=== PATIENT | female | born 1980 | race Caucasian/White ===

== ENCOUNTER 2020-07-25 11:31 | Emergency (ER) | payer OTHER, SELFPAY ==
--- NOTE | ~2020-07-25 | US_ITS ---
EXAMINATION: US pelvic complete DATE: 07/25/2020 12:52 INDICATION: Pelvic pain and vaginal bleeding TECHNIQUE: Multiple transabdominal and endovaginal sonographic images of the pelvis were obtained. COMPARISON: None. FINDINGS: The uterus measures 10.5 x 5.1 x 6.5 cm. There is an approximately 4.1 x 4.2 x 2.7 cm isoec hoic mass of the uterine fundus which has the appearance of an intramural fibroid The endometrial com plex measures 16 mm. The right ovary is not visualized however no right adnexal abnormality is seen. The left ovary measures 2.1 x 1.5 x 1.6 cm. There is normal vascular flow in the left ovary. There is no free fluid in the pelvis. IMPRESSION: 1. Likely uterine fibroid. No definite correlate identified for the patient's symptoms. Reviewed, dictated and finalized at location A. TESY CLERK IMPRESSION: 1. Likely uterine fibroid. No definite correlate identified for the patient's s ymptoms.
--- NOTE | 2020-07-25 11:38 | ED.GENADULT ---
HPI - General Adult General Chief complaint: Vaginal Bleeding Stated complaint: vag pain/bleeding Time Seen by Provider: 07/25/20 11:38 Source: patient Mode of arrival: ambulatory Limitations: no limitations History of Present Illness HPI narrative: Patient is a 40-year-old female with a history of IV drug abuse who presents for evaluation of lower abdominal pain and heavy vaginal bleeding. Pt reports 12 hours of pain that is sharp in nature. She denies fever, nausea or vomiting. Denies back pain. No dysuria, does report vaginal bleeding over past two days. Pt has a history of irregular periods. Patient states she has history of tubal ligation, ovarian cyst removal, denies other intra-abdominal surgeries.She denies vaginal discharge. No history of STI. She denies constipation or diarrhea. Patient denies bloating or distention. Related Data Allergies Allergy/AdvReac Type Severity Reaction Status Date / Time No Known Allergies Allergy Verified 07/25/20 11:46 Review of Systems Review of Systems: Narrative: CONSTITUTIONAL: Denies fever, chills, or sweats. ENT: Denies rhinorrhea, congestion, sore throat, or otalgia. CARDIOVASCULAR: Denies chest pain, palpitations, or edema. RESPIRATORY: Denies cough or dyspnea. GASTROINTESTINAL: Reports lower abdominal pain, denies nausea, vomiting or diarrhea GENITOURINARY: Denies dysuria or hematuria. Reports vaginal bleeding SKIN: Denies rash or itching. MUSCULOSKELETAL: Denies back pain, joint pain, or myalgia. NEUROLOGIC: Denies headache, numbness, or weakness. PSYCHIATRIC: Reports anxiety PMFSH Past Medical History Medical History No pertinent past medical history Surgical History Surgical History (Updated 07/25/20 @ 12:05 by Jud Krueger MD) History of removal of ovarian cyst History of tubal ligation Social History Social History (Updated 07/25/20 @ 12:05 by Jud Krueger MD) Alcohol intake: current Alcohol use details: Social Substance use: former Substance use type: heroin Gender identity (if verbalized by the patient): Female Exam Narrative: Exam Narrative: GENERAL: Awake, alert, conversant, tearful HEAD: Normocephalic, atraumatic. EYES: PERRLA and EOMI. ENT: Nares clear, no rhinorrhea or epistaxis. Mucous membranes moist. NECK: Supple. CHEST: No respiratory distress, breathing even and non labored HEART: Regular rate, sinus rhythm ABDOMEN:Non distended,lower abdominal tenderness, + suprapubic tenderness, + guarding : Labia majora and minora normal without lesions. Vagina with blood present. Approximately 15 cc of blood. No blood clot. No cervical motion tenderness. No adnexal tenderness or fullness bilaterally. No purulent discharge present. EXTREMITIES: Normal range of motion. No edema. SKIN: Warm, dry, no rash. NEURO:No focal deficits. Alert and oriented x3 Course Vital Signs Vital signs: Vital Signs Temperature 36.4 C 07/25/20 11:41 Pulse Rate 74 07/25/20 11:41 Respiratory Rate 14 07/25/20 11:41 Blood Pressure 143/90 H 07/25/20 11:41 Pulse Oximetry 100 07/25/20 11:41 Temperature 36.4 C 07/25/20 11:41 Pulse Rate 74 07/25/20 11:41 Respiratory Rate 14 07/25/20 11:41 Blood Pressure 143/90 H 07/25/20 11:41 Pulse Oximetry 100 07/25/20 11:41 Medical Decision Making MDM Narrative Medical decision making narrative: Patient presented for evaluation of heavy vaginal bleeding in the setting of pelvic pain. At the time of assessment, ABCs are intact and vital signs are stable. Physical exam is notable fo moderate vaginal bleeding, cervix is otherwise normal-appearing. No purulent discharge. No evidence of cervicitis. No adnexal tenderness or fullness. No UTI. Pelvic ultrasound notable for uterine fibroid. Patient is not . At this point, likely dysfunctional uterine bleeding and pain due to fibroid. Pt refused to have lab redraw for [facility]
[2020-07-25 11:41] VITALS: BP 143/90; PULSE 74; RESP 14; TEMP 36.4; O2SAT 100
[2020-07-25] MEDS: ONDANSETRON INJ 4 MG/2 ML VIAL IV PUSH (12:28)
[2020-07-25] MEDS: MORPHINE SULFATE (*CRX) 4 MG/ML INJ IV PUSH (12:28)
[2020-07-25 12:30] LABS: Basophils Absolute Auto 0.1 K/mm3 (0.0-0.1); Basophils Percent Auto 0.8 % (0.2-1.2); Eosinophils Absolute Auto 0.6 K/mm3 (0-0.3); Eosinophils Percent Auto 8.8 % (0-4.4); Hematocrit 38.9 % (37.0-47.0); Hemoglobin 13.3 g/dL (12.0-15.0); Immature Granulocyte Absolute 0.02 K/mm3 (0.00-0.031); Immature Granulocyte Percent A 0.3 % (0-0.5); Lymphocytes Absolute Auto 2.63 K/mm3 (0.9-3.2); Lymphocytes Percent Auto 41.5 % (18.3-44.2); Mean Corpuscular HGB Conc 34.2 g/dl (32-36); Mean Corpuscular Hemoglobin 30.5 pg (26-34); Mean Corpuscular Volume 89.2 fl (80-100); Mean Platelet Volume 8.7 fl (7.4-10.4); Monocytes Absolute Auto 0.6 K/mm3 (0.1-0.6); Monocytes Percent Auto 8.8 % (2.6-8.5); Neutrophils Absolute Auto 2.5 K/mm3 (1.3-6.7); Neutrophils Percent Auto 39.8 % (45.5-73.1); Platelet Count Result 391 k/mm3 (150-375); Red Blood Count 4.36 M/mm3 (4.2-5.4); Red Cell Distribution Width 13.2 % (11.5-14.5); White Blood Count 6.3 K/mm3 (4.5-10.0)
[2020-07-25 12:38] LABS: Add Urine Microscopic? YES; Appearance Urine Cloudy (Clear); Bilirubin Urine Negative (Negative); Blood Urine 3+ (Negative); Color Urine Red (Yellow); Glucose Urine UA Negative (Negative); Ketones Urine Negative (Negative); Leukocyte Esterase Ur Negative LEU/UL (Negative); Mucus Urine Rare /lpf; Nitrate Urine Negative (Negative); Protein Urine 2+ mg/dL (Negative); RBC Urine >75 /hpf (0-2); Specific Grav Ur 1.019 (1.001-1.035); Squamous Epithelial Cell Urine Occasional /hpf (Few); Urobilinogen Urine Negative mg/dL (<2.0)
[2020-07-25 12:43] LABS: Alanine Aminotransferase 25 U/L (4-35); Albumin Level 4.3 g/dL (3.5-5.1); Alkaline Phosphatase 115 U/L (38-126); Anion Gap 7 mmol/L (8-16); Aspartate Amino Transferase 29 U/L (14-36); Bilirubin,Total 0.4 mg/dL (0.2-1.3); Blood Urea Nitrogen 15 mg/dL (7-17); Carbon Dioxide 26 mmol/L (22-30); Chloride 105 mmol/L (98-107); Estimated CRCL calculation 80 ml/min; Estimated Glomerular Filt Rate > 60; Glucose 100 mg/dL (65-105); Potassium 4.3 mmol/L (3.4-5.0); Sodium 138 mmol/L (137-145)
[2020-07-25 13:14] LABS: Thyroid Stimulating Hormone 0.506 uIU/mL (0.465-4.680)
--- NOTE | 2020-07-25 15:35 | PC.NURSE ---
2 blue top specimens rejected by lab. lab contacted for blood draw about 1 hour ago. pt asking to leave.
[2020-07-25 15:36] VITALS: PULSE 67; RESP 16
== END 2020-07-25 15:36 | disposition home or self-care (01) ==
LOC: ANHED 14:43
PROVIDERS: Emergency Provider Emergency Medicine
DX: N93.8 Other specified abnormal uterine and vaginal bleeding (principal)
CPT/HCPCS: 36415; 76856; 80053; 81001; 81025; 84443; 85025; 87070; 87491; 87591; 87808; 96374; 96375; 99284; J0131; J2270; J2405

== ENCOUNTER 2020-09-29 02:23 | Outpatient (CLI) | payer OTHER, SELFPAY ==
[2020-09-29 18:38] LABS: SARS-CoV-2 RNA PCR Negative
== END 2020-09-29 02:24 | disposition home or self-care (01) ==
LOC: ANHCOVIDDT 02:23
PROVIDERS: Visit Provider Obstetrics & Gynecology
DX: Z01.812 Encounter for preprocedural laboratory examination (principal); Z20.822 Contact with and (suspected) exposure to COVID-19
CPT/HCPCS: C9803; U0003; U0005

== ENCOUNTER 2020-10-02 01:08 | Day surgery (SDC) | payer OTHER, SELFPAY ==
[2020-09-28 11:39] VITALS: BMI 32.6
--- NOTE | 2020-10-01 15:21 | WPDANESEPPF ---
Anes - Initial Pre Proc Eval Procedure: Operation Date: 10/02/20 12:00 Proposed Procedures p Total Laparoscopic Assisted Vaginal Hysterectomy - Helga Corona MD Date/Time: 10/01/20 15:21 Surgeon: Helga Corona MD Pre Op Diagnosis: Uterine Leiomyoma Patient Data Age: 40 Gender: F Height: 1.63 m Weight: 86.3 kg Allergies Allergy/AdvReac Type Severity Reaction Status Date / Time No Known Allergies Allergy Verified 10/02/20 10:36 Home Medications Medication Instructions Recorded Confirmed Type hydrocodone-acetaminophen [[place]] 1 tablet PO Q4H PRN 09/28/20 10/02/20 History Patient hx anesthesia problems: none Family hx anesthesia problems: none PMFSH Past Medical History Medical History (Updated 10/01/20 @ 15:22 by Manny Farrell MD) Heroin abuse IV drug abuse Leiomyoma No pertinent past medical history Obesity Surgical History Surgical History (Updated 07/25/20 @ 12:05 by Jud Krueger MD) History of removal of ovarian cyst History of tubal ligation Social History Social History (Updated 07/25/20 @ 12:05 by Jud Krueger MD) Smoking packs per day: 0.75 Smoking cigarettes per day: 15.0 Years smoked: 26 Smoking pack-years: 19.50 Smoking status: Never smoker Second hand tobacco smoke exposure: No Alcohol intake: current Alcohol use details: STATES [place] Substance use: former Substance use type: heroin Last use: AUG 2018 Living arrangements: alone Gender identity (if verbalized by the patient): Female Spiritual care concerns: No Anes - Eval Final PreProcedure Day of Procedure 10/01/20 15:21 Patient weight: obese Heart: regular rate and rhythm Lungs: clear to auscultation and normal air movement Airway: Mallampati scale class II Neurological: alert and oriented Last oral intake: >/= 8 hours ASA classification: III Emergent: no Anesthetic plan: proceed Anesthesia type and monitoring: general ETT Informed Consent: The patient's anesthetic plan and its attendant risks and benefits were discussed with the patient/family/POA. Questions were solicited and answers provided to the satisfaction of the patient/family/POA.
[2020-10-02] VITALS (17 sets, daily range): BP systolic 113–128; BP diastolic 53–84; PULSE 74–107; RESP 15–26; TEMP 36.5–37.1; O2SAT 95–100
[2020-10-02 11:16] LABS: Barbiturate Screen Urine Negative (Negative); Benzodiazepines Screen Urine Positive (Negative)
[2020-10-02 11:17] LABS: Cannabinoid Screen Urine Negative (Negative); Cocaine Screen Urine Negative (Negative); Methadone Screen Urine Negative (Negative); Opiate Screen Urine Negative (Negative); Phencyclidine Screen Urine Negative (Negative)
[2020-10-02 11:28] LABS: Amphetamine Screen Urine Positive (Negative)
[2020-10-02] MEDS: LACTATED RINGERS 1,000 ML 30 ML IV CONT ×2 (11:29→16:21)
[2020-10-02] MEDS: ACETAMINOPHEN 500 MG TABLET 1000 MG PO (11:31)
[2020-10-02] MEDS: KETOROLAC 15 MG/ML VIAL (*BKC) IV PUSH (11:32)
--- NOTE | 2020-10-02 12:37 | WPDHPUPDATE1 ---
History and Physical Update Update Date/Time: 10/02/20 12:37 History and Physical has been reviewed, including an updated exam of the patient. There are NO changes in the patient's condition. Risks, benefits, and alternatives have been discussed and questions answered. Patient agrees to proceed with procedure.
[2020-10-02] MEDS: ceFAZolin 2 GM/D5W 50 ML 2 GM/50 ML BAG IVPB (13:00)
--- NOTE | 2020-10-02 16:26 | P.OP_ITS ---
Procedure Note - Detailed Date of procedure: 10/02/20 Pre-op diagnosis: Uterine Leiomyoma Myoma Post-op diagnosis: same Procedure performed: Total laparoscopic hysterectomy. Description of procedure: The patient was taken to the operating room. She was prepped and draped in the dorsal lithotomy position. A 5 mm incision was made on the abdominal skin of the left upper quadrant using a scalpel. A 5 mm trocar was inserted into the intra-abdominal cavity under direct visualization the scope. Pneumoperitoneum was achieved. An 11 mm incision was made in the left lower quadrant of the abdomen with a scalpel. A 11 mm trocar was inserted into the intra-abdominal cavity under direct visualization the scope. A 5 mm periumbilical incision was made. A 5 mm scope was placed into the intra- abdominal cavity under direct visualization of the scope. The suspensory ligament of the ovary was cauterized and transected with ligature cautery in a bilateral fashion. The fallopian tubes were cauterized and transected in a bilateral fashion with LigaSure cautery. The round ligaments were cauterized and transected in bilateral fashion with LigaSure cautery. The round ligaments were cauterized and transected bilaterally with LigaSure cautery. The broad ligaments were cauterized and transected along the lateral aspects of the uterus down the level of the uterine arteries. A bladder flap was created using sharp and blunt dissection. The ureters were dissected out bilaterally down to the level of the uterine arteries. They could be visualized from the pelvic brim down the uterine arteries. Staying very close to the cervix the parametrium was cauterized transected in a stepwise fashion down to the level of the Liz cup. The Bladder flap was moved distally over the Liz cup using sharp and blunt dissection. The impression of the entire cup was visualized around the cervix. The vagina was opened with a speculum. A large uterine fibroid was present in the cervix and vagina. It was debulked using a tenaculum and a scalpel. A tenaculum was placed at the vaginal mucosa at the anterior fornix and junction of the vagina and cervical mucosa anteriorly. Unipolar cautery is used to cut down on to the tenaculum that was placed in the vagina. This was done from inside the abdominal cavity. When the vagina/colpotomy was made. It was continued in a circumferential fashion around the cervix with knowledge of the uterine anatomy. The vaginal mucosa was transected at the junction of the cervix all the way around the cervix. The uterus was taken out through the vagina. A pneumo occluder was placed in the vagina. The vagina was closed with 0 V lock suture in a running fashion. The ureters were identified again and found to be intact to the level of the uterine arteries. The pelvis was irrigated with a copious amount of antibiotic irrigation. The pneumoperitoneum was reduced. The trocars were removed. The skin was closed subcuticular 4 Monocryl covered with Dermabond. The pneumo occluder was removed from the vagina. The vagina was irrigated with Betadine. The patient tolerated the procedure well. She was taken to the recovery room in stable condition. Sponge lap and needle counts were correct x2. Anesthesia: GETA Surgeon: Helga Corona MD Estimated blood loss (mL): 150 Drains: No Packing: No Pathology: yes Complications: No immediate complications Condition: stable Disposition: PACU Findings: Grossly normal appearing tubes and ovaries. Uterus - 9 7 cm fibroid in the cervix and vagina, pedunculated
--- NOTE | 2020-10-02 17:18 | SUR.PHASEI ---
called dr morillo and aware pt remains hard to arouse,pt drowsy on admission to pre op. dr morillo approved for pt to transfer to room with vss.
--- NOTE | 2020-10-02 17:35 | PC.NURSE ---
This patient, Kim Edwards, was received from PACU on 10/02/20 at 1735. Patient oriented to unit policies and routines
[2020-10-02] MEDS: DEXTROSE 5%/0.45% SOD CHL 1,000 ML 125 ML IV CONT (17:52)
[2020-10-02] MEDS: KETOROLAC 30 MG/ML VIAL (*BKC) IV PUSH ×2 (17:53→23:07)
[2020-10-02] MEDS: HYDROcodone/acetaminophen (*CRX) 10-325 MG TABLET 1 TAB PO (23:09)
[2020-10-03 03:40] VITALS: BP 89/52; PULSE 88; RESP 18; TEMP 36.7; O2SAT 100
[2020-10-03] MEDS: HYDROcodone/acetaminophen (*CRX) 10-325 MG TABLET 1 TAB PO (03:41)
[2020-10-03 08:00] VITALS: BP 82/51; PULSE 89; RESP 18; TEMP 36.3; O2SAT 99
[2020-10-03] MEDS: KETOROLAC 30 MG/ML VIAL (*BKC) IV PUSH (08:24)
[2020-10-03] MEDS: HYDROcodone/acetaminophen (*CRX) 5-325 MG TABLET 1 TAB PO ×2 (08:25→12:24)
--- NOTE | 2020-10-03 09:52 | WPDANESPN ---
Anes - Prog Note Post-Op Date/Time: 10/03/20 09:52 Cardiovascular status: normal Respiratory status: normal Airway patency: baseline Mental status: baseline Post-Op hydration status: normal Vital Signs: Last Vital Signs Temp 36.3 C L 10/03/20 08:00 Pulse 89 10/03/20 08:00 Resp 18 10/03/20 08:00 BP 82/51 L 10/03/20 08:00 Pulse Ox 99 10/03/20 08:00 Pain Score (VAS): 09/20 I/O: Intake & Output 10/02/20 10/03/20 10/03/20 23:59 07:59 15:59 Intake Total 340 1380 1600 Output Total 1390 1600 400 Balance -1050 -220 1200 10/02/20 10/02/20 10:53 11:13 Urine Opiates Screen Negative Urine Methadone Screen Negative Ur Barbiturates Screen Negative Ur Phencyclidine Scrn Negative Ur Amphetamine Screen Positive A U Benzodiazepines Scrn Positive A Urine Cocaine Screen Negative U Cannabinoids Screen Negative Blood Type A Positive Antibody Screen Negative Post-procedural complaints: none Patient Feedback: Patient satisfied with anesthetic care.
--- NOTE | 2020-10-03 13:02 | PM.GYNPNOP ---
SUPERVISOR INCISING - A/P Postoperative Procedures: Procedures Operation Date: 10/02/20 12:00 Actual Procedures Side Surgeon p Total Laparoscopic Assisted Vaginal Hysterectomy Not Applicable Helga Corona MD Postoperative day: 1 Postoperative status: doing well and other (Tollerating Regular Diet) Postoperative plan: routine post-op care and discharge Time Spent With Patient Time: Total time spent is greater than 50% in coordination of care (as documented) at patient's floor/unit and/or counseling patient: Time with patient: 15 - 25 minutes SUPERVISOR INCISING- PN:Subj Post-Op Subjective Date/time seen: 10/03/20 13:02 Subjective: patient reports feeling better, pain is well controlled and patient is tolerating oral intake Exam Const: General: cooperative, healthy appearing, comfortable and no acute distress Resp: Auscultation: no crackles, no rales, no rhonchi and no wheezes Cardio: Rhythm: regular rhythm Heart sounds: no click and no murmurs GI: Inspection: non-distended Auscultation: normal bowel sounds Other: Incisions - CDI Extrem: General: normal to inspection, no pedal edema and no calf tenderness SUPERVISOR INCISING - PN: Obj Data Vital Signs Vital Signs: Vital Signs - 24 hr 10/02/20 16:23 10/02/20 16:30 10/02/20 16:41 Temperature 97.8 F Pulse Rate 86 80 80 Respiratory Rate 26 H 23 H 25 H Blood Pressure 116/53 L 116/63 120/68 Pulse Oximetry 99 99 95 10/02/20 16:55 10/02/20 17:10 10/02/20 17:24 Temperature Pulse Rate 74 76 76 Respiratory Rate 17 18 17 Blood Pressure 116/84 115/66 118/68 Pulse Oximetry 97 100 100 10/02/20 17:36 10/02/20 17:45 10/02/20 18:00 Temperature 97.7 F Pulse Rate 78 79 81 Respiratory Rate 16 15 Blood Pressure 117/69 128/68 118/70 Pulse Oximetry 100 100 100 10/02/20 18:15 10/02/20 18:30 10/02/20 19:00 Temperature 97.8 F Pulse Rate 79 86 85 Respiratory Rate 18 Blood Pressure 119/70 118/67 124/71 Pulse Oximetry 100 100 100 10/02/20 19:30 10/02/20 20:00 10/02/20 21:00 Temperature Pulse Rate 99 89 93 Respiratory Rate 18 20 Blood Pressure 116/70 120/70 121/70 Pulse Oximetry 100 100 100 10/02/20 23:10 10/03/20 03:40 10/03/20 08:00 Temperature 98.0 F 98.1 F 97.4 F L Pulse Rate 103 H 88 89 Respiratory Rate 18 18 18 Blood Pressure 120/72 89/52 L 82/51 L Pulse Oximetry 100 100 99 Intake/Output Intake/Output: Intake & Output 09/30/20 10/01/20 10/02/20 10/03/20 23:59 23:59 23:59 23:59 Intake Total 390 2980 Output Total 1390 2000 Balance -1000 980 Meds/Results Medications: Active Medications Generic Name Dose Route Start Last Admin Trade Name Freq PRN Reason Stop Dose Admin Hydrocodone Bitart/Acetaminophen 1 tab 10/02/20 17:29 10/03/20 12:24 Hydrocodone/Acetaminophen (*Crx) 5-325 Mg Tablet PO 1 tab Q3H PRN Administration Pain Rated 5 or Less Hydrocodone Bitart/Acetaminophen 1 tab 10/02/20 17:29 10/03/20 03:41 Hydrocodone/Acetaminophen (*Crx) 10-325 Mg Tablet PO 1 tab Q3H PRN Administration Pain Rated 6 or Greater Dextrose/Sodium Chloride 1,000 mls @ 125 mls/hr 10/02/20 17:29 10/03/20 00:15 Dextrose 5% Sodium Chloride 0.45% IV CONT Infused .Q8H DERICK Infusion Ibuprofen 600 mg 10/02/20 17:29 Ibuprofen 600 Mg Tablet PO Q6H PRN Cramping Ketorolac Tromethamine 30 mg 10/02/20 17:29 10/03/20 08:24 Ketorolac 30 Mg/Ml Vial (*Bkc) IV PUSH 10/07/20 17:30 30 mg Q6H PRN Administration Pain Rated 4-6 Naloxone HCl 0.1 mg 10/02/20 17:29 Naloxone Hcl 0.4 Mg/Ml Vial IV PUSH Q2M PRN Respiratory rate less than 10 Ondansetron HCl 4 mg 10/02/20 17:29 Ondansetron Inj 4 Mg/2 Ml Vial IV PUSH Q6H PRN Nausea And Vomiting
--- NOTE | 2020-10-03 13:11 | PC.NURSE ---
Discharge instructions given to pt. along with printed instructions. Prescription was e-filed to [facility]. Pt. verbalized understanding. that she will need to go and cone pick[facility]. No questions or concerns verbalized by pt.
== END 2020-10-03 13:24 | disposition home or self-care (01) ==
LOC: ANHSURGERY 10:30 → ANHOB2 17:19
PROVIDERS: Anesthesiology; Visit Provider Obstetrics & Gynecology
PROC: 0UT9FZZ Resection of Uterus, Via Natural or Artificial Opening With Percutaneous Endoscopic Assistance (ICD-10-PCS; CPT 58571; principal; 2020-10-02 12:00)
DX: D25.0 Submucous leiomyoma of uterus (principal); N83.11 Corpus luteum cyst of right ovary; N83.6 Hematosalpinx; N72 Inflammatory disease of cervix uteri; N80.0 Endometriosis of uterus; F17.210 Nicotine dependence, cigarettes, uncomplicated; E66.9 Obesity, unspecified; Z68.33 Body mass index [BMI] 33.0-33.9, adult
CPT/HCPCS: 58571; 36415; 80307; 86850; 86900; 86901; 88304; 88305; 88307; 99199; A9270; J0330; J0690; J1100; J1885; J2250; J2370; J2405; J2704; J2710; J3010; J7030; J7120